=== PATIENT | female | born 1960 | race Caucasian/White ===

== ENCOUNTER 2019-10-26 17:23 | Emergency (ER) | payer BC ==
[~2019-10-26] VITALS: Ht 175.3 cm; Wt 77.3 kg
[2019-10-26 17:34] VITALS: TEMP 98.7
[2019-10-26] MEDS ORDERED: NORCO 325 MG-51 TAB PO (18:15)
[2019-10-26] MEDS ORDERED: CRUTCHES MC (18:19)
[2019-10-26 18:41] VITALS: BP 129/79; PULSE 75
== END 2019-10-26 18:41 | disposition home or self-care (01) ==
LOC: COL.ER 17:23
DX: S86.911A Strain of unspecified muscle(s) and tendon(s) at lower leg level, right leg, initial encounter (principal); F17.210 Nicotine dependence, cigarettes, uncomplicated; X50.1XXA Overexertion from prolonged static or awkward postures, initial encounter; Y92.410 Unspecified street and highway as the place of occurrence of the external cause